=== PATIENT | female | born 1950 | race American Indian/Alaskan Native ===

== ENCOUNTER 2017-03-04 08:54 | Day surgery (SDC) | payer MEDICARE ==
[2017-03-04] MEDS: TROPICAMIDE 1% OPHTH SOLN 2ML OS (10:25)
[2017-03-04] MEDS: PROPARACAINE 0.5% OPHTH SOL 15ML OS (10:25)
[2017-03-04] MEDS: PHENYLEPHRINE 2.5% OPHTH SOL 2ML OS (10:25)
[2017-03-04] MEDS: OFLOXACIN 0.3 % (OCUFLOX) OPTH SOL 5ML OS (10:25)
[2017-03-04] MEDS ORDERED: fentaNYL 100 MCG/2 ML INJECTION (J3010) As Ordered (10:57)
[2017-03-04] MEDS ORDERED: MIDAZOLAM INJ 2 MG/2 ML VIAL (J2250) As Ordered (10:57)
[2017-03-04] MEDS: ACETYLCHOLINE OPHTH SOLN 1% 2ML (MIOCHOL-E) As Ordered (11:24)
[2017-03-04] MEDS: POVIDONE-IODINE 5% OPHTH PREP SOL 30ML As Ordered (11:24)
[2017-03-04] MEDS: DUOVISC (0.50ML VISCOAT/0.55ML PROVISC) OPHTH KIT As Ordered ×2 (11:24)
[2017-03-04] MEDS: BALANCED SALT IRRIGATION SOL 500ML GLASS BOTTLE (FOR OR EYE COMPOUND) As Ordered (11:24)
[2017-03-04] MEDS: CEFUROXIME 1MG/0.1ML INTRACAMERAL INJ As Ordered (11:24)
[2017-03-04] MEDS: LIDOCAINE 0.75%/EPINEPHRINE 0.025% IN BSS 1ML SYR INTRACAMERAL (OR ONLY) As Ordered (11:24)
== END 2017-03-04 12:32 | disposition home or self-care (01) ==
LOC: M SDC 08:54
DX: H25.12 Age-related nuclear cataract, left eye (principal); H40.1130 Primary open-angle glaucoma, bilateral, stage unspecified; J44.9 Chronic obstructive pulmonary disease, unspecified; M12.9 Arthropathy, unspecified; Z79.899 Other long term (current) drug therapy; Z79.82 Long term (current) use of aspirin; Z98.51 Tubal ligation status
CPT/HCPCS: 66984

== ENCOUNTER 2017-03-18 07:33 | Day surgery (SDC) | payer MEDICARE ==
[~2017-03-18 07:33] MED LIST: MIDAZOLAM INJ 2 MG/2 ML VIAL (J2250) As Ordered; OFLOXACIN 0.3 % (OCUFLOX) OPTH SOL 5ML OD; PHENYLEPHRINE 2.5% OPHTH SOL 2ML OD; PROPARACAINE 0.5% OPHTH SOL 15ML OD; TROPICAMIDE 1% OPHTH SOLN 2ML OD; fentaNYL 100 MCG/2 ML INJECTION (J3010) As Ordered
[2017-03-18] MEDS: TROPICAMIDE 1% OPHTH SOLN 2ML OD (08:35)
[2017-03-18] MEDS: OFLOXACIN 0.3 % (OCUFLOX) OPTH SOL 5ML OD (08:35)
[2017-03-18] MEDS: PHENYLEPHRINE 2.5% OPHTH SOL 2ML OD (08:35)
[2017-03-18] MEDS: PROPARACAINE 0.5% OPHTH SOL 15ML OD (08:35)
[2017-03-18] MEDS: BALANCED SALT IRRIGATION SOLUTION 500ML BAG (FOR OR EYE MACHINE) As Ordered (09:52)
[2017-03-18] MEDS: DUOVISC (0.50ML VISCOAT/0.55ML PROVISC) OPHTH KIT As Ordered (09:52)
[2017-03-18] MEDS: POVIDONE-IODINE 5% OPHTH PREP SOL 30ML As Ordered (09:52)
[2017-03-18] MEDS: LIDOCAINE 0.75%/EPINEPHRINE 0.025% IN BSS 1ML SYR INTRACAMERAL (OR ONLY) As Ordered (09:52)
[2017-03-18] MEDS: CEFUROXIME 1MG/0.1ML INTRACAMERAL INJ As Ordered (09:52)
[2017-03-18] MEDS: ACETYLCHOLINE OPHTH SOLN 1% 2ML (MIOCHOL-E) As Ordered (09:52)
== END 2017-03-18 10:55 | disposition home or self-care (01) ==
LOC: M SDC 07:33
DX: H25.11 Age-related nuclear cataract, right eye (principal); I10 Essential (primary) hypertension; J44.9 Chronic obstructive pulmonary disease, unspecified; Z79.899 Other long term (current) drug therapy
CPT/HCPCS: 66984

== ENCOUNTER → 2018-11-09 | Outpatient (CLI) | payer MEDICARE ==
[~2018-11-09] MED LIST changes: +ADV250INH INH; +ASPI81TA85 PO; +ENAL10TA2 PO; +HYDR25TAB PO; +IBUP200C25 PO; +LATA0.0013 OU; -MIDAZOLAM INJ 2 MG/2 ML VIAL (J2250) As Ordered; -OFLOXACIN 0.3 % (OCUFLOX) OPTH SOL 5ML OD; -PHENYLEPHRINE 2.5% OPHTH SOL 2ML OD; -PROPARACAINE 0.5% OPHTH SOL 15ML OD; +TIOT18INH INH; -TROPICAMIDE 1% OPHTH SOLN 2ML OD; -fentaNYL 100 MCG/2 ML INJECTION (J3010) As Ordered
--- NOTE | 2018-11-09 16:37 | REP ---
Low-dose lung screening CT of the chest: There are no comparison studies. The study is performed without IV contrast. The images are presented at lung windowing only. There is a 6 ml calcified granuloma in the anterior segment of the right lower lobe. There are calcified granulomas in the left hilus and subcarinal mediastinum. There are no other lung nodules or There are no infiltrates or effusions. There is bronchiectasis, particularly in the lower lobes. Impression: There are calcified granulomas. There is bronchiectasis. There are no other lung nodules or masses. Category II low-dose lung screening chest CT. The probability of malignancy is less than 1%. Depending on risk factors consider annual follow-up low-dose lung screening CT. Electronically Signed by Bacilio Sherman MD 11/09/2018 04:28 P
== END ==
LOC: M RAD 12:34
PROVIDERS: ATTEND Physician Assistant
DX: Z12.2 Encounter for screening for malignant neoplasm of respiratory organs (principal); Z87.891 Personal history of nicotine dependence; J47.9 Bronchiectasis, uncomplicated; J84.10 Pulmonary fibrosis, unspecified

== ENCOUNTER → 2018-11-10 | Outpatient (CLI) | payer MEDICARE ==
--- NOTE | 2018-11-10 11:38 | PFTRPT ---
Height: 65.00 Inches Weight: 185.00 Lbs BSA: 1.91 Diagnosis: J43.1 DATE OF PROCEDURE: 11/10/2018 ORDERED BY: Darian Diego PA-C Spirometry: Pre and post bronchodilator study of excellent technical quality. Forced vital capacity reduced. FEV1 out of proportion. Obstructive index is, therefore, reduced. Flow Volume Loop: Expiratory limb of the flow volume loop consistent with significant flow rate limitation. Favorable bronchodilator response is identified. Lung Volumes: Total lung capacity elevated. Residual volume consistent with air trapping. Diffusing Capacity: Diffusing capacity is significantly reduced and does not correct for alveolar volume. Hemoglobin: Hemoglobin acceptable at 15.6. Airway Mechanics: Airway resistance elevated with concomitant decrease in airway conductance. IMPRESSION: Severe obstructive ventilatory impairment with underlying air trapping and diffusing capacity impairment. Favorable bronchodilator response. Please correlate clinically. MTDD
--- NOTE | 2018-11-11 10:19 | PULFX ---
DATE OF PROCEDURE: 11/10/2018 ORDERED BY: CAROLINE Bonner Pre and post bronchodilator study of excellent technical quality. Forced vital capacity reduced. FEV1 is out of proportion, obstructive index is therefore reduced. Expiratory limb of the flow volume loop suggests significant flow rate limitation. Favorable bronchodilator response is identified. Total lung capacity elevated. Residual volume suggests air trapping. Diffusing capacity is significantly reduced and does not correct for alveolar volume. Hemoglobin acceptable at 15.6. Airway resistance elevated with concomitant decrease in airway conductance. IMPRESSION: Severe obstructive ventilatory impairment with underlying air trapping and diffusing capacity impairment. Favorable bronchodilator response. Please correlate clinically.
== END ==
LOC: M CARPUL 10:45
PROVIDERS: ATTEND Physician Assistant
DX: J43.1 Panlobular emphysema (principal)

== ENCOUNTER → 2019-11-27 | Outpatient (CLI) | payer MEDICARE ==
[~2019-11-27] MED LIST changes: -ASPI81TA85 PO; +ASPI81TA86 PO; +ENAL-36 PO; -ENAL10TA2 PO
--- NOTE | 2019-12-04 15:17 | REP ---
LOW-DOSE LUNG SCREENING CT HISTORY: Nicotine dependence. COMPARISON: CT 11/09/2018. TECHNIQUE: Low-dose lung screening CT exam is utilized using hospital protocol. FINDINGS: A small nodular opacity 4 mm in diameter is again seen in the posterior segment of the left upper lobe on Image #24. This is stable. No new nodule is seen bilaterally. There are mild scattered interstitial fibrotic changes bilaterally. There is mild bilateral lower lobe bronchiectasis. No mediastinal contour abnormality is seen. Calcified lymph nodes are seen in the subcarinal region. Heart is normal in size. No pleural effusion is seen. There are degenerative changes of the spine. IMPRESSION: Lung-RADS Category 2 benign, stable exam. No new nodule bilaterally. Stable 4-mm nodule left upper lobe. Continued low-dose lung screening CT exam recommended in one year. MTDD
== END ==
LOC: M RAD 12:32
PROVIDERS: ATTEND Physician Assistant
DX: R91.8 Other nonspecific abnormal finding of lung field (principal); Z87.891 Personal history of nicotine dependence

== ENCOUNTER → 2020-12-05 | Outpatient (CLI) | payer MEDICARE ==
[~2020-12-05] MED LIST changes: +HYDR-3490 PO; -HYDR25TAB PO
--- NOTE | 2020-12-05 12:57 | REP ---
INDICATION: HX OF NICOTINE DEPENDENCE. COMPARISON: Multiple the latest 11/27/2019 also low-dose screening CT of the lungs TECHNIQUE: Axial noncontrast images from the thoracic inlet to the upper abdomen using low-dose lung screening technique (LDCT). As per the protocol only lung window images were sent to the read station interpretation FINDINGS: There is evidence of new left upper lobe apical pleuroparenchymal scarring. The nodule seen in the apicoposterior segment of the left upper lobe is unchanged. Note is again made of an incidental calcified granuloma in the left lower lobe. There are no new abnormal nodules Grossly, the mediastinum and pulmonary tammy are unchanged. Grossly, the imaged upper abdomen and imaged osseous structures are unchanged. IMPRESSION: Lung rads category 2 S. No new nodule, however, evidence of new left apical pleuroparenchymal scarring. There is no revised Fleischner society criteria on the recommendation for follow-up of such a finding. Follow-up should be based on clinical assessment. <Electronically signed by Steve Wu > 12/05/20 [id number]
== END ==
LOC: M RAD 12:24
PROVIDERS: ATTEND Physician Assistant
DX: R91.8 Other nonspecific abnormal finding of lung field (principal); Z87.891 Personal history of nicotine dependence

== ENCOUNTER → 2022-01-30 | Outpatient (CLI) | payer OTHER | LOC: M RAD 14:40 | PROVIDERS: ATTEND Physician Assistant | DX: Z12.2 Encounter for screening for malignant neoplasm of respiratory organs (principal); Z87.891 Personal history of nicotine dependence ==